=== PATIENT | female | born 1995 | race Caucasian/White ===

== ENCOUNTER 2016-09-16 04:57 | Emergency (ER) | payer SELFPAY ==
[2016-09-16] MEDS ORDERED: OXYCODONE HCL IR 5 MG TABLET PO ONE (08:03)
--- NOTE | 2016-09-16 08:06 | ER Document Report ---
HPI - HPI Pain Level: 5 Notes: Patient is 21-year-old female presents the ED complaining of right lower dental pain 1 day. Patient states that she with her wisdom tooth she has had pain here in the past. No discharge. Patient has also noticed some swelling to right lower jaw and some pain with any pressure chewing on that tooth. Patient states she is taking [id number] meds with minimal relief. Otherwise she is still able to eat and drink. Pain does not radiate. Denies any neck stiffness. Denies any headaches, dizziness, fever, URI, sore throat, chest pain , palpitations, cough, shortness of breath, abdominal pain, nausea/vomiting, rash. No allergies. No daily meds. - ROS Notes: REVIEW OF SYSTEMS: CONSTITUTIONAL : Denies fever, chills, or sweats. Denies recent illness. EENT: see hpi CARDIOVASCULAR: Denies chest pain. Denies palpitations or racing or irregular heart beat. Denies ankle edema. RESPIRATORY: Denies cough, cold, or chest congestion. Denies shortness of breath, difficulty breathing, or wheezing. GASTROINTESTINAL: Denies abdominal pain or distention. Denies nausea, vomiting , or diarrhea. Denies blood in vomitus, stools, or per rectum. Denies black, tarry stools. Denies constipation. GENITOURINARY: Denies difficulty urinating, painful urination, burning, frequency, blood in urine, or discharge. MUSCULOSKELETAL: Denies back or neck pain or stiffness. Denies joint pain or swelling. SKIN: Denies rash, lesions or sores. NEUROLOGICAL: denies numbness/tingling ALL OTHER SYSTEMS REVIEWED AND NEGATIVE. Dictation was performed using [employer] voice recognition software - CARDIOVASCULAR Cardiovascular: DENIES: Chest pain - REPRODUCTIVE LMP: 09/09/16 Reproductive: DENIES: : - DERM Skin Color: Normal Past Medical History - Social History Smoking Status: Current Every Day Smoker Family History: Reviewed & Not Pertinent Patient has suicidal ideation: No Patient has homicidal ideation: No Renal/ Medical History: Denies: Hx Peritoneal Dialysis - Immunizations Hx Diphtheria, Pertussis, Tetanus Vaccination: Yes Vertical Provider Document - CONSTITUTIONAL Notes: PHYSICAL EXAMINATION: GENERAL: Well-appearing, well-nourished and in no acute distress. HEAD: Atraumatic, normocephalic. EYES: Pupils equal round and reactive to light, extraocular movements intact, sclera anicteric, conjunctiva are normal. ENT: EAC clear b/l. TM's intact b/l without erythema, fluid, or perforation. Nares patent and without discharge. oropharynx clear without exudates. No tonsilar hypertrophy or erythema. Moist mucous membranes. No sinus tenderness. Mouth: dental caries. + tenderness and swelling to the #32 Rt lower. no discharge or obvious abscess noted. Rt facial swelling, mild, near affected area. No red streaks or erythema to the skin. No nora's appreciated. NECK: Normal range of motion, supple without lymphadenopathy. No rigidity/ meningismus. LUNGS: Breath sounds clear to auscultation bilaterally and equal. No wheezes rales or rhonchi. HEART: Regular rate and rhythm without murmurs, rubs, gallops. Extremities: No cyanosis, clubbing, or edema b/l. Peripheral pulses 2+. Capillary refill less than 3 seconds. NEUROLOGICAL: Cranial nerves grossly intact. Normal speech, normal gait. Normal sensory, motor exams PSYCH: Normal mood, normal affect. SKIN: Warm, Dry, normal turgor, no rashes or lesions noted. - INFECTION CONTROL TRAVEL OUTSIDE OF THE [place] IN LAST 30 DAYS: No Course - Re-evaluation Re-evalutation: 09/16/16 08:22 Afebrile, well-hydrated, 21 field since the ED with right lower dental pain, suspect probable infection based on workup today. Vitals are stable. PE otherwise unremarkable. Suspicion for any blood leaks, sepsis, meningitis, respiratory compromise. Oxycodone 10 mg given p.o. in the ED. We will send her home with clindamycin 300 mg p.o. twice daily for 10 days. Also sent home with Billy Rosen to crush over tooth to help with with pain. Conservative measures otherwise for symptoms. Recommend she call a dentist for consult since she can. Recheck with her PCM to 3 days. Return to ED with any worsening /concerning symptoms otherwise as reviewed. Patient in agreement. - Vital Signs Vital signs: Temp Pulse Resp BP Pulse Ox 97.8 F 111/70 09/16/16 05:34 09/16/16 05:34 Discharge - Discharge Clinical Impression: Pain, dental Condition: Stable Disposition: HOME, SELF-CARE Instructions: Clindamycin ([facility]), Toothache ([facility]) Additional Instructions: Take medication as directed May crush tessalon elizabeth over tooth to help with pain tylenol/ibuprofen as needed Salt water gargles, peroxide rinses [place] and floss twice daily Get an appointment with a dentist Recheck with your PCM in 2-3 days Return to the ED with any worsening symptoms and/or development of fever, headache, chest pain, palpitations, syncope, shortness of breath, trouble breathing, abdominal pain, n/v/d, or other worsening symptoms that are concerning to you. Prescriptions: Benzonatate [Tessalon Perles 100 mg Capsule] 100 mg PO Q8HP PRN #10 capsule PRN Reason: Clindamycin HCl [Cleocin 300 mg Capsule] 300 mg PO BID #20 capsule Referrals: [facility] [Provider Group] - Follow up as needed
[2016-09-16 08:23] VITALS: BP 108/68
== END 2016-09-16 08:10 | disposition home or self-care (01) ==
LOC: ER 04:57
DX: K08.89 Other specified disorders of teeth and supporting structures (principal); R22.0 Localized swelling, mass and lump, head; F17.200 Nicotine dependence, unspecified, uncomplicated
CPT/HCPCS: 99282

== ENCOUNTER 2016-09-16 20:36 | Emergency (ER) | payer SELFPAY ==
[2016-09-16 20:58] VITALS: BP 110/70
== END 2016-09-16 22:30 | disposition left against medical advice (07) ==
LOC: ER 20:36
DX: Z53.9 Procedure and treatment not carried out, unspecified reason (principal); K08.89 Other specified disorders of teeth and supporting structures